=== PATIENT | male | born 1945 | race Caucasian/White ===

== ENCOUNTER 2024-02-23 09:16 | Inpatient (IN) | payer MEDICARE, OTHER ==
[~2024-02-23 09:16] MED LIST: Iopamidol-370 76% 500 ML MDV (1 ML CHARGE) ONE
[2024-02-23 11:22] LABS: #Basophils Less than 0.03 10x3/uL (0.0-0.2); %Basophils 0.2 % (0.0-1.0); %Eosinophils 1.2 % (0.0-10.0); %Lymphocytes 13.5 % (21.0-51.0); %Monocytes 5.5 % (0.0-10.0); %Neutrophils 79.4 % (42.0-75.0); Hematocrit 43.6 % (42.0-52.0); Hemoglobin 14.4 g/dL (14.0-18.0); Mean Corpuscular Hemoglobin 29.7 pg (27.0-31.0); Mean Corpuscular Volume 89.9 fL (78.0-98.0); Mean Platelet Volume 9.4 fL (7.4-10.4); Platelet Count 208 10x3/uL (130-400); RBC Distribution Width 13.7 % (11.5-14.5); Red Blood Cell (RBC) Count 4.85 mill/uL (4.70-6.10)
[2024-02-23 11:31] LABS: Acetaminophen Less than 10 mcg/mL (Less than 10); Alcohol Less than 10.0 mg/dL (Less than 10); Salicylate Less than 8.0 mg/dL (Less than 8.0)
[2024-02-23 11:34] LABS: ALT (SGPT) 20 U/L (8-55); AST (SGOT) 21 U/L (5-34); Albumin 3.5 g/dL (3.4-4.8); Alkaline Phosphatase 104 U/L (40-110); Anion Gap 13 mmol/L (10-20); BUN (Urea Nitrogen) 18 mg/dL (8.4-25.7); Bilirubin, Total 0.8 mg/dL (0.2-1.2); CK (CPK) 71 U/L (30-200); Calc. Creatinine Clearance 0 mL/min (70-130); Calcium 9.3 mg/dL (7.8-10.44); Carbon Dioxide 25 mmol/L (23-31); Chloride 106 mmol/L (98-107); Estimated GFR 83; Globulin 3.4 g/dL (2.4-3.5); Glucose 144 mg/dL (83-110); Lipase 26 U/L (8-78); Potassium 3.6 mmol/L (3.5-5.1); Protein, Total 6.9 g/dL (5.8-8.1); Sodium 140 mmol/L (136-145)
[2024-02-23 11:39] LABS: Troponin I Less than 0.010 ng/mL (< 0.028)
[2024-02-23] MEDS ORDERED: Aspirin Chewable 81 MG TAB ONE (14:12)
[2024-02-23] MEDS ORDERED: hydrALAZINE 20 MG/ML VIAL SLOW IVP PRN (14:39)
[2024-02-23] MEDS ORDERED: Acetaminophen/Codeine 30-300mg Tablet PO PRN (14:39)
[2024-02-23] MEDS ORDERED: Acetaminophen 650 MG Suppository PR PRN (14:39)
[2024-02-23] MEDS ORDERED: Guaifenesin DM 100-10/5 ML UDCUP PO PRN (14:39)
[2024-02-23] MEDS ORDERED: Ondansetron PF 4 MG/2 ML Vial IVP PRN (14:39)
[2024-02-23] MEDS ORDERED: Acetaminophen 325 MG TAB PO PRN (14:39)
[2024-02-23 19:59] VITALS: BMI 35.3
[2024-02-23] MEDS: Atorvastatin Calcium 40 MG TAB PO SCH (20:30)
[2024-02-23] MEDS ORDERED: Atorvastatin Calcium 10 MG TAB PO SCH (21:00)
[2024-02-24 05:04] LABS: #Basophils Less than 0.03 10x3/uL (0.0-0.2); %Basophils 0.1 % (0.0-1.0); %Eosinophils 0.3 % (0.0-10.0); %Lymphocytes 9.8 % (21.0-51.0); %Monocytes 7.6 % (0.0-10.0); %Neutrophils 81.9 % (42.0-75.0); Hematocrit 41.1 % (42.0-52.0); Hemoglobin 13.6 g/dL (14.0-18.0); Mean Corpuscular HGB CONC 33.1 g/dL (32.0-36.0); Mean Corpuscular Hemoglobin 29.8 pg (27.0-31.0); Mean Corpuscular Volume 89.9 fL (78.0-98.0); Mean Platelet Volume 9.3 fL (7.4-10.4); Platelet Count 214 10x3/uL (130-400); RBC Distribution Width 13.6 % (11.5-14.5); Red Blood Cell (RBC) Count 4.57 mill/uL (4.70-6.10)
[2024-02-24 05:27] LABS: LDL Cholesterol, Calculated 71 mg/dL; Triglycerides 75 mg/dL (Less than 150)
[2024-02-24 05:30] LABS: ALT (SGPT) 16 U/L (8-55); AST (SGOT) 18 U/L (5-34); Albumin 3.1 g/dL (3.4-4.8); Alkaline Phosphatase 89 U/L (40-110); Anion Gap 9 mmol/L (10-20); BUN (Urea Nitrogen) 16 mg/dL (8.4-25.7); Bilirubin, Total 0.8 mg/dL (0.2-1.2); Calc. Creatinine Clearance 123 mL/min (70-130); Calcium 8.7 mg/dL (7.8-10.44); Carbon Dioxide 26 mmol/L (23-31); Cardiac Risk 2.9 (Less than 4.5); Chloride 105 mmol/L (98-107); Cholesterol 129 mg/dl (< 200 Desired); Estimated GFR 90; Globulin 3.1 g/dL (2.4-3.5); Glucose 106 mg/dL (83-110); HDL Cholesterol 44 mg/dL (>60 Neg Risk); Potassium 3.6 mmol/L (3.5-5.1); Protein, Total 6.2 g/dL (5.8-8.1); Sodium 136 mmol/L (136-145)
[2024-02-24] MEDS: Enoxaparin 40 MG (0.4 mL) SYRINGE SC SCH (09:18)
[2024-02-24] MEDS: Aspirin 81 mg Enteric Coated Tablet PO SCH (09:19)
[2024-02-25] MEDS: Clopidogrel Bisulfate 75 MG TAB PO SCH (09:33)
[2024-02-25] MEDS ORDERED: Lidocaine 1% w/Epinephrine 1:100K 20 ML VIAL ONE (11:50)
[2024-02-25 13:54] VITALS: TEMP 98.6
[2024-02-25 17:07] VITALS: BP 162/97
[2024-02-25] MEDS ORDERED: Amlodipine 5 MG TAB PO SCH (21:00)
[2024-02-26] MEDS ORDERED: Losartan 25 MG TAB PO SCH (09:00)
[2024-02-26] MEDS ORDERED: Hydrochlorothiazide 25 MG TAB PO SCH (09:00)
== END 2024-02-25 19:00 | disposition home or self-care (01) | DRG 66 ==
LOC: ERS 09:16 → ERHOLD 14:33 → 2SE 19:07 → OBSVTOIN 02-24 13:44
PROVIDERS: ADMIT Internal Medicine; ATTEND Family Medicine
PROC: 4A00X4Z Measurement of Central Nervous Electrical Activity, External Approach (ICD-10-PCS; principal; 2024-02-24)
DX: I63.9 Cerebral infarction, unspecified (principal); I10 Essential (primary) hypertension; E78.5 Hyperlipidemia, unspecified; Z79.82 Long term (current) use of aspirin; Z79.899 Other long term (current) drug therapy; R26.81 Unsteadiness on feet
CPT/HCPCS: 36415; 36416; 70450; 70551; 71045; 71275; 80053; 80061; 80307; 82140; 82550; 83605; 83690; 83880; 84443; 84484; 85025; 85379; 87040; 87428; 93005; 93306; 95700; 95711; 95957; 96360; 96361; J1650; Q9967